=== PATIENT | female | born 2000 | race American Indian/Alaskan Native ===

== ENCOUNTER 2019-05-21 22:45 | Emergency (ER) | payer MEDICAID, OTHER ==
[~2019-05-21] VITALS: Ht 167.6 cm; Wt 51.8 kg
[~2019-05-21 22:45] MED LIST: PHEN-824 PO
[2019-05-21 23:12] LABS: URINE HCG POSITIVE (NEG)
[2019-05-21 23:14] LABS: CLARITY,URINE SLIGHTLY CLOUDY (Clear); COLOR,URINE YELLOW (Yellow); GLUCOSE, URINE NEGATIVE (Neg); KETONES,URINE 15 mg/dl (Neg); LEUKOCYTE ESTERASE ,URINE TRACE (Neg); NITRITES, URINE NEGATIVE (Neg); OCCULT BLOOD,URINE TRACE-INTACT (Neg); PROTEIN,URINE TRACE mg/dl (Neg); UROBILINOGEN,URINE 0.2 E.U/dL (0.2-1.0)
[2019-05-21 23:19] LABS: UA COLLECTION TYPE CLN CATCH MIDSTREAM
[2019-05-21 23:22] LABS: BACTERIA,URINE FEW /HPF (Neg); MUCUS STRANDS MODERATE /LPF (Neg); RBC,URINE NONE SEEN /HPF (0-2); SQUAMOUS EPITHELIAL CELL,UR MANY /LPF (FEW)
[2019-05-21 23:38] LABS: BASOPHILS # (AUTO) 0.1 X10'3 (0-0.2); BASOPHILS % (AUTO) 0.6 % (0-1); EOSINOPHILS # (AUTO) 0.1 X10'3 (0-0.9); EOSINOPHILS % (AUTO) 0.8 % (0-6); HEMATOCRIT 40.1 % (35.0-45.0); HEMOGLOBIN 13.9 g/dl (12.0-16.0); LYMPHOCYTES # (AUTO) 1.5 X10'3 (1.1-4.8); LYMPHOCYTES % (AUTO) 11.8 % (21-51); MEAN CORPUSCULAR HEMOGLOBIN 32.5 PG (27.0-31.0); MEAN CORPUSCULAR HGB CONC 34.7 g/dL (33.0-36.5); MEAN CORPUSCULAR VOLUME 93.8 FL (78-98); MEAN PLATELET VOLUME 8.8 FL (7.4-10.4); MONOCYTES # (AUTO) 0.9 X10'3 (0-0.9); MONOCYTES % (AUTO) 7.1 % (2-12); NEUTROPHILS % (AUTO) 79.7 % (42-75); PLATELET COUNT 319 X10'3 (140-440); RED BLOOD COUNT 4.27 X10'6 (4.20-5.60); RED CELL DISTRIBUTION WIDTH 12.8 % (11.5-14.5); WHITE BLOOD COUNT 12.6 X10'3 (4.5-11.0)
[2019-05-21 23:57] LABS: ALANINE AMINOTRANSFERASE 22 U/L (12-78); ALBUMIN 4.1 G/DL (3.4-5.0); ALBUMIN/GLOBULIN RATIO 1.1 (1.1-1.5); ALKALINE PHOSPHATASE 54 IU/L (46-116); ANION GAP 11 (8-16); ASPARTATE AMINO TRANSFERASE 19 U/L (10-37); BILIRUBIN,TOTAL 0.5 MG/DL (0.1-1.0); BLOOD UREA NITROGEN 5 MG/DL (7-18); BUN/CREATININE RATIO 6.9 (6.6-38.0); CALCIUM 9.1 MG/DL (8.5-10.1); CHLORIDE 102 MMOL/L (99-107); CREATININE 0.72 MG/DL (0.40-0.90); GLUCOSE 83 MG/DL (70-104); POTASSIUM 3.7 MMOL/L (3.5-5.1); SODIUM 138 MMOL/L (135-145); TOTAL CARBON DIOXIDE 25.2 MMOL/L (24-32); eGFR > 90 ML/MIN
[2019-05-22 00:18] LABS: LIPASE 56 U/L (73-393)
[2019-05-22 00:23] LABS: BETA HCG,QUANTITATIVE 59253 mIU/ml
[2019-05-22] MEDS ORDERED: metoclopramide 5 mg/ml inj IV ONE (00:25)
[2019-05-22] MEDS ORDERED: diphenhydrAMINE 50 mg/ml inj IV ONE (00:25)
[2019-05-22] MEDS ORDERED: normal saline 1000ML IV soln IVB ONE ×3 (00:25→01:55)
[2019-05-22] MEDS ORDERED: ondansetron/PF 4mg/2ml inj IV ONE (01:25)
[2019-05-22] MEDS ORDERED: acetaminophen 1,000mg/100ml IV 100 ML IV SCH (02:00)
[2019-05-22] MEDS ORDERED: ONDA4TAB12 PO (02:51)
[2019-05-22 03:24] VITALS: BP 92/58
== END 2019-05-22 03:26 | disposition home or self-care (01) ==
LOC: ER 22:46
DX: O21.9 Vomiting of pregnancy, unspecified (principal); F17.210 Nicotine dependence, cigarettes, uncomplicated; F12.90 Cannabis use, unspecified, uncomplicated; Z91.040 Latex allergy status; Z79.899 Other long term (current) drug therapy; Z3A.01 Less than 8 weeks gestation of pregnancy
CPT/HCPCS: 36415; 80053; 81001; 81025; 83690; 84702; 85025; 96361; 96374; 96375; 99284; J0131; J1200; J2405; J2765; J7030

== ENCOUNTER 2020-05-18 11:10 | Emergency (ER) | payer MEDICAID ==
[~2020-05-18] VITALS: Ht 167.6 cm; Wt 54.4 kg
[~2020-05-18 11:10] MED LIST changes: +ONDA4TAB12 PO
[2020-05-18 11:14] VITALS: BP 135/87
[2020-05-18 11:40] LABS: URINE HCG NEGATIVE (NEG)
[2020-05-18] MEDS ORDERED: ketorolac tromethamine 15mg/ml inj. IM ONE (11:45)
[2020-05-18] MEDS ORDERED: orphenadrine citrate 60mg/2ml inj. IM ONE (11:45)
[2020-05-18 11:46] LABS: CLARITY,URINE CLOUDY (Clear); COLOR,URINE YELLOW (Yellow); GLUCOSE, URINE NEGATIVE (Neg); KETONES,URINE NEGATIVE (Neg); LEUKOCYTE ESTERASE ,URINE NEGATIVE (Neg); NITRITES, URINE NEGATIVE (Neg); OCCULT BLOOD,URINE LARGE (Neg); PH,URINE 5.5 (4.8-8.0); PROTEIN,URINE 30 mg/dl (Neg)
[2020-05-18 11:50] LABS: UA COLLECTION TYPE CLN CATCH MIDSTREAM
[2020-05-18 11:52] LABS: BACTERIA,URINE FEW /HPF (Neg); MUCUS STRANDS NONE SEEN /LPF (Neg); RBC,URINE TNTC /HPF (0-2); SQUAMOUS EPITHELIAL CELL,UR MANY /LPF (FEW); WBC,URINE 0-4 /HPF (0-4)
[2020-05-18 12:17] LABS: BASOPHILS # (AUTO) 0.1 X10'3 (0-0.2); BASOPHILS % (AUTO) 0.8 % (0-1); EOSINOPHILS # (AUTO) 0.1 X10'3 (0-0.9); EOSINOPHILS % (AUTO) 1.7 % (0-6); HEMOGLOBIN 12.1 g/dl (12.0-16.0); LYMPHOCYTES # (AUTO) 2.3 X10'3 (1.1-4.8); LYMPHOCYTES % (AUTO) 31.6 % (21-51); MEAN CORPUSCULAR HEMOGLOBIN 30.7 PG (27.0-31.0); MEAN CORPUSCULAR HGB CONC 32.7 g/dL (33.0-36.5); MEAN CORPUSCULAR VOLUME 93.9 FL (78-98); MEAN PLATELET VOLUME 8.5 FL (7.4-10.4); MONOCYTES # (AUTO) 0.5 X10'3 (0-0.9); NEUTROPHILS # (AUTO) 4.3 X10'3 (1.8-7.7); NEUTROPHILS % (AUTO) 58.9 % (42-75); PLATELET COUNT 336 X10'3 (140-440); RED BLOOD COUNT 3.94 X10'6 (4.20-5.60); RED CELL DISTRIBUTION WIDTH 13.4 % (11.5-14.5); WHITE BLOOD COUNT 7.3 X10'3 (4.5-11.0)
[2020-05-18 12:21] LABS: ALANINE AMINOTRANSFERASE 15 U/L (12-78); ALBUMIN/GLOBULIN RATIO 1.1 (1.1-1.5); ALKALINE PHOSPHATASE 39 IU/L (46-116); ANION GAP 10 (8-16); ASPARTATE AMINO TRANSFERASE 16 U/L (10-37); BILIRUBIN,TOTAL 0.5 MG/DL (0.1-1.0); BLOOD UREA NITROGEN 10 MG/DL (7-18); BUN/CREATININE RATIO 10.9 (6.6-38.0); CALCIUM 8.9 MG/DL (8.5-10.1); CHLORIDE 106 MMOL/L (99-107); CREATININE 0.92 MG/DL (0.40-0.90); GLUCOSE 89 MG/DL (70-104); POTASSIUM 3.8 MMOL/L (3.5-5.1); SODIUM 140 MMOL/L (135-145); TOTAL PROTEIN 7.6 G/DL (6.4-8.2); eGFR 76 ML/MIN
== END 2020-05-18 13:20 | disposition home or self-care (01) ==
LOC: ER 11:10
DX: M62.838 Other muscle spasm (principal); R30.0 Dysuria; F12.90 Cannabis use, unspecified, uncomplicated; Z91.040 Latex allergy status; Z79.899 Other long term (current) drug therapy
CPT/HCPCS: 36415; 80053; 81001; 81025; 85025; 96372; 99284; J1885; J2360

== ENCOUNTER 2020-08-18 08:24 | Emergency (ER) | payer MEDICAID ==
[~2020-08-18] VITALS: Ht 167.6 cm; Wt 57.8 kg
[2020-08-18 08:28] VITALS: BP 114/69
[2020-08-18] MEDS ORDERED: ketorolac tromethamine 15mg/ml inj. IM ONE (10:45)
[2020-08-18] MEDS ORDERED: orphenadrine citrate 60mg/2ml inj. IM ONE (10:45)
[2020-08-18] MEDS ORDERED: CYCL-1 PO (11:02)
[2020-08-18 11:05] LABS: CLARITY,URINE CLOUDY (Clear); COLOR,URINE YELLOW (Yellow); GLUCOSE, URINE NEGATIVE (Neg); KETONES,URINE NEGATIVE (Neg); LEUKOCYTE ESTERASE ,URINE MODERATE (Neg); NITRITES, URINE NEGATIVE (Neg); OCCULT BLOOD,URINE LARGE (Neg); PROTEIN,URINE NEGATIVE (Neg); URINE HCG NEGATIVE (NEG); UROBILINOGEN,URINE 0.2 E.U/dL (0.2-1.0)
[2020-08-18 11:07] LABS: UA COLLECTION TYPE NON-SPECIFIED
[2020-08-18 11:20] LABS: BACTERIA,URINE 1+ /HPF (Neg); SQUAMOUS EPITHELIAL CELL,UR MANY /LPF (FEW)
[2020-08-18 11:21] LABS: RBC,URINE 0-2 /HPF (0-2)
[2020-08-18] MEDS ORDERED: NITR100C6 PO (11:51)
== END 2020-08-18 11:54 | disposition home or self-care (01) ==
LOC: ER 08:24
DX: S29.012A Strain of muscle and tendon of back wall of thorax, initial encounter (principal); N39.0 Urinary tract infection, site not specified; M54.89 Other dorsalgia; F12.90 Cannabis use, unspecified, uncomplicated; Z87.440 Personal history of urinary (tract) infections; Z91.040 Latex allergy status; Z79.899 Other long term (current) drug therapy; X58.XXXA Exposure to other specified factors, initial encounter; Y93.89 Activity, other specified; Y92.89 Other specified places as the place of occurrence of the external cause; Y99.8 Other external cause status
CPT/HCPCS: 71045; 81001; 81025; 96372; 99284; J1885; J2360

== ENCOUNTER 2022-01-17 18:30 | Emergency (ER) | payer MEDICAID ==
[~2022-01-17] VITALS: Ht 167.6 cm; Wt 59.5 kg
[~2022-01-17 18:30] MED LIST changes: +CYCL-1 PO; +NITR100C6 PO
[2022-01-17 18:45] VITALS: BP 128/80
[2022-01-17] MEDS ORDERED: ketorolac trometh. 30mg/ml inj. IM ONE (18:50)
[2022-01-17] MEDS ORDERED: HYDR-3965 PO (19:37)
== END 2022-01-17 20:05 | disposition home or self-care (01) ==
LOC: ER 18:31
DX: S93.602A Unspecified sprain of left foot, initial encounter (principal); F12.10 Cannabis abuse, uncomplicated; Z87.448 Personal history of other diseases of urinary system; Z91.040 Latex allergy status; Z79.899 Other long term (current) drug therapy; W19.XXXA Unspecified fall, initial encounter; Y93.89 Activity, other specified; Y92.89 Other specified places as the place of occurrence of the external cause; Y99.8 Other external cause status
CPT/HCPCS: 73610; 73630; 96372; 99284; J1885; A6449

== ENCOUNTER 2024-08-30 22:34 | Emergency (ER) | payer MEDICAID ==
[~2024-08-30] VITALS: Ht 167.6 cm; Wt 54.5 kg
[~2024-08-30 22:34] MED LIST changes: +ONDA-243 PO; -ONDA4TAB12 PO
[2024-08-30 22:40] VITALS: BP 130/78; PULSE 97; RESP 20; O2SAT 97
--- NOTE | 2024-08-30 23:02 | Physician Documentation ---
History of Present Illness ~ Chief Complaint: Foreign body Stated Complaint: SPLINTER IN FOOT Time Seen by MD: 23:01 Primary Medical Doctor: NONE HPI This 24-year-old female presents to the emergency department accompanied by her . She reports that she was barefoot, rubbing her foot back and forth on the carpet when she suddenly felt something sharp going into her heel. She reports that she tried to take it out with no success. She is unsure when her last tetanus was. She denies any other symptoms of illness and reports that she feels otherwise well and at her usual baseline. Medication Reconciliation Allergies: Coded Allergies: latex (Verified Allergy, Severe, dermatitis, intense swelling of contacted area, 08/30/24) Scheduled Cyclobenzaprine* (Cyclobenzaprine*), 1 TAB PO HS Nitrofurantoin Monohyd/M-Cryst (Macrobid 100 mg Capsule), 1 CAP PO Q12H Phenazopyridine HCl (Pyridium), 1 TAB PO Q8H Phenazopyridine HCl (Pyridium), 1 TAB PO Q8H Scheduled PRN ONDANSETRON ODT 4mg tablet (Ondansetron Odt), 1 TABLET PO Q6H PRN for nausea/vomiting Past Medical History Past Medical History: UTI Past Surgical History: no surgical history Alcohol Use: Occasionally Drug Use: marijuana Lives In: Home Occupation: employed Review of Systems ROS As stated above in the HPI, otherwise all systems are reviewed and negative. Physical Exam Vital Signs: Temperature: 98.0, Source: Oral, Heart Rate: 97, Respiratory Rate: 20, BP: 130/78, Pulse Oximetry: 97, Weight: 54.550 Physical Exam General: Alert, no apparent distress. HEENT: PERRL, EOMI, no injection, moist mucous membranes. Neck: Full range of motion. Respiratory: Lungs clear, no respiratory distress. Chest: No accessory muscle use. Cardiovascular: Regular rate and rhythm, no murmurs. Gastrointestinal: Soft, nontender, nondistended. Bowels sounds present. Extremities: Normal range of motion, no deformity. Neurologic: Oriented x4. Psychiatric: Normal mood and affect. Skin: Normal color, warm and dry. No edema, no ecchymosis. Tip of splinter visible plantar aspect left foot, anterior aspect of heel. Procedures Procedures Left heel around foreign body anesthetized with 2 ml of 1% lidocaine. Forceps used to pull approx 3 cm tip of skewer stick out of heel. Dressing to site by nursing. Progress Results/Orders Results/Orders Orders - PEARL MATUTE NP Dressing Orders (08/30/24 23:02) Laceration/I&D Tray Set Up (08/30/24 23:02) Wound Care Orders (08/30/24 23:02) Naproxen Tablet (Naprosyn Tablet) (08/30/24 23:45) Completed Orders - PEARL MATUTE NP Tetanus/Pertuss/Diph Acell/Pf (Boostrix (08/30/24 23:05) Lidocaine 1%/Pf 5ml (Xylocaine-Mpf 1% Vi (08/30/24 23:10) Medications Received in ER Medications (Trade) Dose Ordered Sig/Jesus Route PRN Reason Start Time Stop Time Status Last Admin Dose Admin (Boostrix vaccine syringe) 0.5 ml ONCE ONCE IMVAC 08/30/24 23:05 08/30/24 23:06 DC 08/30/24 23:35 0.5 ML Vital Signs 08/30/24 22:40 Temp 98.0 Pulse 97 Resp 20 B/P (MAP) 130/78 Pulse Ox 97 Medical Decision Making Additional Comment Skewer stick removed intact. Patient not diabetic. Discussed case with PETE Galvan and prophylactic antibiotics not thought to be necessary. Departure Time of Disposition: 23:28 Impression: Primary Impression: Foreign body in skin of foot Condition: Stable Discharge Instructions: Foreign Body Additional Instructions: Your splinter was removed. Your tetanus was updated. Keep area clean and dry. Return if worse. Referrals: NO PRIMARY CARE PROVIDER (PCP) Education Educated: Patient, Family Educated regarding: diagnosis, treatment, prognosis, need for follow up Signature Scribe Signature: no scribe Attestation: The note accurately reflects work and decisions made by me.Pearl Matute - YUDITH 08/30/24 23:12 PEARL MATUTE NP Aug 30, 2024 23:02
[2024-08-30] MEDS: LIDOcaine 1%/PF 5ML 10 MG/ML VIAL IJ ONE (23:17)
[2024-08-30] MEDS: TETanus/Pertussis (Acell)/Diphther VAC/PF (Tdap-Adult) 0.5ml syringe IMVAC ONE (23:35)
[2024-08-30 23:51] VITALS: TEMP 98
[2024-08-30] MEDS: naproxen 500mg tablet PO ONE (23:56)
[2024-08-30] MEDS: bacitracin 15gm ointment TP ONE (23:56)
== END 2024-08-30 23:59 | disposition home or self-care (01) ==
LOC: ER 22:34
DX: S90.852A Superficial foreign body, left foot, initial encounter (principal); F12.90 Cannabis use, unspecified, uncomplicated; Z91.040 Latex allergy status; Z79.899 Other long term (current) drug therapy; Z72.89 Other problems related to lifestyle; W45.8XXA Other foreign body or object entering through skin, initial encounter; Y93.89 Activity, other specified; Y92.89 Other specified places as the place of occurrence of the external cause; Y99.8 Other external cause status
CPT/HCPCS: 90471; 90715; 99284